=== PATIENT | female | born 1995 | race African-American/Black ===

== ENCOUNTER 2019-03-25 15:53 | Emergency (ER) | payer MEDICARE, OTHER ==
[~2019-03-25] VITALS: Ht 152.4 cm; Wt 92.1 kg
[2019-03-25] MEDS ORDERED: CALCITRIOL0.5 MCG PO (16:36)
[2019-03-25] MEDS ORDERED: CELEXA40 MG PO (16:36)
[2019-03-25] MEDS ORDERED: CALCIUM600 MG PO (16:37)
[2019-03-25] MEDS ORDERED: OMEPRAZOLE20 MG PO (16:37)
[2019-03-25] MEDS ORDERED: VALIUM10 MG PO (17:59)
--- OUTSIDE RECORDS SUMMARY | 2019-03-25 18:26 | XMS ---
PreManage Notification: LINDA DENNIS Security [employer] Stuffer Events No recent Security Events currently on file CRITERIA MET - [facility] CARE PROVIDERS MIRIAM PAYAN Internal [facility] Current PHONE: Unknown TERRY BESS [facility] Current PHONE: Unknown [facility] Other 04/25/2018-Sandie SYED PHONE: Unknown MIRIAM PAYAN Primary Care Current PHONE: Unknown TERRY BESS Primary Care Current PHONE: Unknown JOEY [facility] Primary Care Current PHONE: Unknown [facility] Current [place] PHONE: Unknown MIRIAM PAYAN Primary Care Current PHONE: Unknown TY PALMA Primary Care Current PHONE: Unknown [facility] Primary Care Current PHONE: Unknown [facility] Provider 09/20/2016-Current PHONE: Unknown [facility] Primary Care Current PHONE: Unknown MIRIAM PAYAN 11/11/2015-Current PHONE: Unknown Manisha has no Care Guidelines for this patient. Gian VISIT COUNT (12 MO.) [address] [place] [address]. 7 [facility] H. 1 [place] TOTAL 9 NOTE: Visits indicate total known visits. ED/UCC VISIT TRACKING (12 MO.) 03/25/2019 15:53 [facility] TYPE: Emergency COMPLAINT: - PAIN NON INJURY 2018 16:11 [facility]. TYPE: Emergency COMPLAINT: - Back Pain DIAGNOSES: - Low back pain - Other chronic pain - Back [facility] COMPLAINT: - BACK PROBLEM 11/11/2018 04:19 [facility] TYPE: Emergency COMPLAINT: - Back Pain DIAGNOSES: - Other chronic pain - Low back pain - Back Pain - Cyclical vomiting, not intractable 04/28/2018 04:13 [facility] TYPE: Emergency COMPLAINT: - Pain; DIAGNOSES: - Pain; - Anxiety - Encounter for screening, unspecified - Other chronic pain 04/27/2018 18:55 [facility] TYPE: Emergency COMPLAINT: - Bruising, Mass DIAGNOSES: - Encounter for other specified aftercare - Bruising, Mass - Other injury of unspecified body region, initial encounter - Wound Check 04/16/2018 20:04 [facility] TYPE: Emergency DIAGNOSES: - Left Arm Pain - Arm Pain - Contusion of left forearm, initial encounter 03/30/2018 04:55 [facility] OR [facility] TYPE: Emergency DIAGNOSES: - Pain; - Generalized Pain - Myalgia 03/28/2018 15:26 [facility] OR [facility] TYPE: Emergency DIAGNOSES: - Hypocalcemia - Body Aches - Myalgia - Dehydration - Generalized Body Aches INPATIENT VISIT TRACKING (12 MO.) No inpatient visits to display in this time frame [email or web address]
--- NOTE | 2019-03-26 12:44 | EKG ---
[facility] [address] [place], [place] [address] Signed Normal sinus rhythm Rightward axis Borderline ECG No previous ECGs available Confirmed by LEILANI HEARN DO ([id number]) on 03/26/2019 12:44:09 PM Electronically Signed By: LEILANI HEARN DO 03/26/19 1244 PATIENT NAME: LINDA DENNIS KISHORE Electrocardiogram DATE OF : [birth year] PHYSICIAN: LEILANI HEARN DO REPORT #: [id number] REPORT IS CONFIDENTIAL AND NOT TO BE RELEASED WITHOUT AUTHORIZATION
== END 2019-03-25 18:08 | disposition home or self-care (01) ==
LOC: ED 15:53
DX: R25.2 Cramp and spasm (principal); E83.51 Hypocalcemia; Z88.8 Allergy status to other drugs, medicaments and biological substances; Z88.1 Allergy status to other antibiotic agents; Z79.899 Other long term (current) drug therapy
CPT/HCPCS: 80053; 82330; 85025; 93005; 93010; 96360; 99284-25; J7030